=== PATIENT | male | born 1990 | race Caucasian/White ===

== ENCOUNTER 2021-03-10 06:50 | Day surgery (SDC) | payer BC ==
[~2021-03-10 06:50] MED LIST: Lactated Ringers 1,000 ML IV SCH; Lidocaine 1%/Sod Bicarbonate in NS 8.4% 1 ML Syringe IDERM PRN; Sodium Chloride 0.9% 10 ML Syringe FLUSH PRN
[2021-03-10] MEDS ORDERED: Bupivacaine 0.5%/EPINEPHrine 1:200,000 50 ML MDV ONE (07:17)
--- NOTE | 2021-03-10 07:26 | PCM.PREANE ---
Preanesthetic Assessment - Procedure Proposed Procedure: Lipoma excision from the back - Anesthesia/Transfusion/Family Hx Anesthesia History: Prior Anesthesia Without Reaction Transfusion History: No Prior Transfusion(s) - Review of Systems General: No Symptoms, Fatigue Pulmonary: No Symptoms Cardiovascular: No Symptoms Gastrointestinal: No Symptoms Neurological: No Symptoms Other: Reports: Depression, Anxiety - Physical Assessment NPO Status Date: 03/09/21 NPO Status Time: 21:00 Vital Signs: Last Vital Signs Temp 97.5 F 03/10/21 07:00 Pulse 54 L 03/10/21 07:00 Resp 10 L 03/10/21 07:00 BP 120/87 03/10/21 07:00 Pulse Ox 96 03/10/21 07:00 ASA Class: 2 Mental Status: Alert & Oriented x3 Dentition: Reports: Normal Dentition Thyro-Mental Finger Breadths: 3 Mouth Opening Finger Breadths: 2 ROM/Head Extension: Full Lungs: Clear to Auscultation, Normal Respiratory Effort Cardiovascular: Regular Rate, Regular Rhythm - Allergies Allergies/Adverse Reactions: Allergies Allergy/AdvReac Type Severity Reaction Status Date / Time No Known Allergies Allergy Verified 03/09/21 11:55 - Acknowledgements Anesthesia Type Planned: MAC Pt an Appropriate Candidate for the Planned Anesthesia: Yes Alternatives and Risks of Anesthesia Discussed w Pt/Guardian: Yes Pt/Guardian Understands and Agrees with Anesthesia Plan: Yes PreAnesthesia Questionnaire HEENT History: Reports: Impaired Vision Other HEENT History: WEARS GLASSES Cardiovascular History: Reports: None Respiratory History: Reports: None Gastrointestinal History: Reports: None Genitourinary History: Reports: None 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: 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: None Other Musculoskeletal History: RIGHT SHOULDER PAIN, ROTATOR CUFF IMPINGEMENT AC JOINT DEGENERATIVE DISEASE WITH GLENOID LABRAL TEAR Neurological History: Reports: Other (See Below) Other Neuro History: concussion Psychiatric History: Reports: Anxiety, Depression, Other (See Below) Other Psychiatric History: fatigue, sleep disturbances Endocrine/Metabolic History: Reports: None Hematologic History: Reports: None Immunologic History: Reports: None Oncologic (Cancer) History: Reports: None Dermatologic History: Reports: Other (See Below) Other Dermatologic History: back lipoma - Infectious Disease History Infectious Disease History: Reports: None - Past Surgical History Head Surgeries/Procedures: Reports: None HEENT Surgical History: Reports: LASIK Cardiovascular Surgical History: Reports: None Respiratory Surgical History: Reports: None GI Surgical History: Reports: None Female Surgical History: Reports: None Male Surgical History: Reports: None Endocrine Surgical History: Reports: None Neurological Surgical History: Reports: None Musculoskeletal Surgical History: Reports: Shoulder Surgery Oncologic Surgical History: Reports: None Dermatological Surgical History: Reports: None - SUBSTANCE USE Tobacco Use Status *Q: Never Tobacco User Recreational Drug Use History: No - HOME MEDS Home Medications: Home Meds Escitalopram [Lexapro] 40 mg PO QAM 03/09/21 [History] Ibuprofen 600 mg PO Q4H PRN 03/09/21 [History] - CURRENT (IN HOUSE) MEDS Current Meds: Current Medications Lactated Ringer's (Ringers, Lactated) 1,000 mls @ 125 mls/hr IV ASDIRECTED LUANN Stop: 03/10/21 23:00 Lidocaine/Sodium Bicarbonate (Lidocaine 1%/Sod Bicarbonate In Ns 8.4% 1 Ml Syringe) 0.25 ml IDERM ONETIME PRN PRN Reason: Prior to IV Start Stop: 03/10/21 18:00 Sodium Chloride (Sodium Chloride 0.9% 10 Ml Syringe) 10 ml FLUSH ASDIRECTED PRN PRN Reason: Keep Vein Open Stop: 03/10/21 18:00
[2021-03-10] MEDS ORDERED: Lidocaine 1% 6 ML ONE (07:30)
[2021-03-10] MEDS ORDERED: Propofol 200 MG/20 ML SDV ONE ×6 (07:30→08:59)
[2021-03-10] MEDS ORDERED: Midazolam 1 MG/ML 2 ML SDV ONE (07:31)
[2021-03-10] MEDS ORDERED: fentaNYL 100 MCG/2 ML SDV ONE ×2 (07:31→08:27)
[2021-03-10] MEDS ORDERED: Ondansetron 4 MG/2 ML SDV ONE (08:35)
[2021-03-10] MEDS ORDERED: Lactated Ringers 1,000 ML ONE (08:38)
[2021-03-10] MEDS ORDERED: Ketamine 500 mg/10 ML MDV ONE (08:51)
[2021-03-10] MEDS ORDERED: Sodium Chloride 0.9% 10 ML Syringe FLUSH ONE (10:45)
[2021-03-10] MEDS ORDERED: Iopamidol 612 MG/ML 100 ML Bottle IVPUSH ONE (10:45)
--- NOTE | 2021-03-10 10:53 | PCM48HPAN ---
Post Anesthesia Note - EVALUATION WITHIN 48HRS OF ANESTHETIC Vital Signs in Normal Range: Yes Patient Participated in Evaluation: Yes Respiratory Function Stable: Yes Airway Patent: Yes Cardiovascular Function Stable: Yes Hydration Status Stable: Yes Pain Control Satisfactory: Yes Nausea and Vomiting Control Satisfactory: Yes Mental Status Recovered: Yes Vital Signs: Last Vital Signs Temp 97.5 F 03/10/21 10:15 Pulse 64 03/10/21 10:15 Resp 10 L 03/10/21 10:15 BP 112/67 03/10/21 10:15 Pulse Ox 92 L 03/10/21 10:15 - COMMENTS/OBSERVATIONS Free Text/Narrative:: Preparing for discharge home
--- NOTE | 2021-03-10 12:07 | CT ---
Chest CT Technique: Multiple axial sections through the chest were obtained. Intravenous contrast was utilized. Reconstructed coronal and sagittal images were obtained. Comparison: No prior chest CT is available. Findings: Visualized upper abdominal structures show fatty infiltration within the liver. No acute abnormality is otherwise seen within the abdomen. No pericardial thickening is seen. Thoracic aorta shows no aneurysm. No mediastinal adenopathy is seen. There is a slight thick linear density along the right side of the mediastinum most likely representing chronic atelectasis. Lungs otherwise are clear with no acute parenchymal change being seen. There is a fatty mass being seen within the posterior right back in between the superficial muscles and chest. This fatty area measures 11.3 cm x 2.5 cm. Craniocaudal length is 10.8 cm. There is superficial soft tissue air being seen, please correlate as to etiology. Bone window settings were obtained which show several slight compression deformities which are likely old. Minimal degenerative change is noted within the upper compression deformity. Impression: 1. Fatty mass compatible with lipoma within the right-sided posterior chest wall. 2. Soft tissue air seen superficial to this area, please correlate as to etiology. 3. Fatty infiltration within the liver. 4. Thick linear density adjacent to the right mediastinum most likely representing chronic atelectasis. Diagnostic code #3
--- NOTE | 2021-03-10 12:26 | PCM.PRNOTE ---
- Free Text/Narrative Note: Date: 03/10/2021 Operation: attempted resection of presumed large lipoma, core biopsies of submuscular mass Surgeon: Yahir Cox MD Indication: large symptomatic soft tissue mass overlying right scapula, present for years, clinically consistent with large lipoma. Findings: large well-circumscribed soft mass, discovered to be deep to the latissimus muscle. At that point, plan for excision was aborted and several core biopsies were obtained. A CT scan was subsequently obtained with findings showing a large submuscular mass consistent with lipoma. Detailed Report: The patient was taken to the operating room and kept in left lateral decubitus position on the stretcher. The right shoulder was prepped and draped in usual sterile fashion. Timeout was performed and monitored anesthesia care was initiated. 20 cc of 0.5% Marcaine with epinephrine was injected intradermally over the lesion. A transversely oriented incision overlying the long access of the mass was made with a 15 blade scalpel. Dissection was carried down to the subcutaneous tissue. Skin flaps were developed. Circumferential dissection was performed. The mass was quite large. As dissection continued, it was apparent that there was skeletal muscle overlying the mass. The mass felt soft and mobile, but due to its size and deep location, I became concerned about the possibility for soft tissue malignancy. I made the decision to abort excision of the mass and obtain multiple core biopsies of the lesion. Specimens were se nt in formalin for pathologic analysis. The skin was closed in layers using interrupted 3-0 Vicryl stitches with running subcuticular 4 oh stitch. The wound was dressed with Dermabond and covered with a dry dressing. The patient was then sent to radiology for a CT scan of the chest with contrast. Findings appear consistent with a large lipoma deep to the latissimus muscle. We will await pathology results and determine an operative plan based on these findings.
[2021-03-10 12:49] VITALS: BP 116/52; PULSE 81
== END 2021-03-10 12:34 | disposition home or self-care (01) ==
LOC: JD.SDS 06:50
PROVIDERS: ATTEND Surgery
DX: D17.21 Benign lipomatous neoplasm of skin and subcutaneous tissue of right arm (principal); E66.3 Overweight; F17.210 Nicotine dependence, cigarettes, uncomplicated; Z79.899 Other long term (current) drug therapy; Z98.890 Other specified postprocedural states; Z68.32 Body mass index [BMI] 32.0-32.9, adult
CPT/HCPCS: 20205; 71260; J2250; J2405; J2704; J3010; J3490; J7120; Q9967; 00300

== ENCOUNTER 2021-03-22 08:55 | Day surgery (SDC) | payer BC ==
[~2021-03-22 08:55] MED LIST changes: +Ketamine 500 mg/10 ML MDV ONE; +Midazolam 1 MG/ML 2 ML SDV ONE; +Ondansetron 4 MG/2 ML SDV ONE; +Propofol 200 MG/20 ML SDV ONE; +fentaNYL 250 MCG/5 ML SDV ONE
[2021-03-22] MEDS ORDERED: Lidocaine 1% with EPINEPHrine 1:100,000 10 ML MDV ONE ×2 (09:00→09:54)
--- NOTE | 2021-03-22 09:00 | PCM.PREANE ---
Preanesthetic Assessment - Anesthesia/Transfusion/Family Hx Anesthesia History: Prior Anesthesia Without Reaction Family History of Anesthesia Reaction: No Transfusion History: No Prior Transfusion(s) - Review of Systems General: No Symptoms, Fatigue Pulmonary: No Symptoms Cardiovascular: No Symptoms Gastrointestinal: No Symptoms Neurological: No Symptoms Other: Reports: Depression, Anxiety - Physical Assessment NPO Status Date: 03/21/21 NPO Status Time: 20:00 ASA Class: 2 Mental Status: Alert & Oriented x3 Airway Class: Mallampati = 2 Dentition: Reports: Normal Dentition Thyro-Mental Finger Breadths: 3 Mouth Opening Finger Breadths: 3 ROM/Head Extension: Full Lungs: Clear to Auscultation, Normal Respiratory Effort Cardiovascular: Regular Rate, Regular Rhythm - Allergies Allergies/Adverse Reactions: Allergies Allergy/AdvReac Type Severity Reaction Status Date / Time No Known Allergies Allergy Verified 03/22/21 08:34 - Blood Blood Available: No Product(s) Available: None - Anesthesia Plan Pre-Op Medication Ordered: None - Acknowledgements Anesthesia Type Planned: General Anesthesia Pt an Appropriate Candidate for the Planned Anesthesia: Yes Alternatives and Risks of Anesthesia Discussed w Pt/Guardian: Yes Pt/Guardian Understands and Agrees with Anesthesia Plan: Yes PreAnesthesia Questionnaire HEENT History: Reports: Impaired Vision Other HEENT History: WEARS GLASSES Cardiovascular History: Reports: None Respiratory History: Reports: None Gastrointestinal History: Reports: None Genitourinary History: Reports: None 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: 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: 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 Other Musculoskeletal History: RIGHT SHOULDER PAIN, ROTATOR CUFF IMPINGEMENT AC JOINT DEGENERATIVE DISEASE WITH GLENOID LABRAL TEAR Neurological History: Reports: Other (See Below) Other Neuro History: concussion Psychiatric History: Reports: Anxiety, Depression, Other (See Below) Other Psychiatric History: fatigue, sleep disturbances Endocrine/Metabolic History: Reports: None, Obesity/BMI 30+ Hematologic History: Reports: None Immunologic History: Reports: None Oncologic (Cancer) History: Reports: None Dermatologic History: Reports: Other (See Below) Other Dermatologic History: back lipoma - Infectious Disease History Infectious Disease History: Reports: None - Past Surgical History Head Surgeries/Procedures: Reports: None HEENT Surgical History: Reports: LASIK Cardiovascular Surgical History: Reports: None Respiratory Surgical History: Reports: None GI Surgical History: Reports: None Female Surgical History: Reports: None Male Surgical History: Reports: None Endocrine Surgical History: Reports: None Neurological Surgical History: Reports: None Musculoskeletal Surgical History: Reports: Shoulder Surgery Oncologic Surgical History: Reports: None Dermatological Surgical History: - SUBSTANCE USE Tobacco Use Status *Q: Never Tobacco User Recreational Drug Use History: No - HOME MEDS Home Medications: Home Meds Escitalopram [Lexapro] 40 mg PO QAM 03/09/21 [History] Ibuprofen 600 mg PO Q4H PRN 03/09/21 [History] oxyCODONE 5 mg PO Q4H PRN #15 tab 03/10/21 [Rx] - CURRENT (IN HOUSE) MEDS Current Meds: Current Medications Lactated Ringer's (Ringers, Lactated) 1,000 mls @ 125 mls/hr IV ASDIRECTED LUANN Stop: 03/22/21 23:00 Lidocaine/Sodium Bicarbonate (Lidocaine 1%/Sod Bicarbonate In Ns 8.4% 1 Ml Syringe) 0.25 ml IDERM ONETIME PRN PRN Reason: Prior to IV Start Stop: 03/22/21 23:00 Sodium Chloride (Sodium Chloride 0.9% 10 Ml Syringe) 10 ml FLUSH ASDIRECTED PRN PRN Reason: Keep Vein Open Stop: 03/22/21 23:00 Discontinued Medications Fentanyl (Fentanyl 250 Mcg/5 Ml Sdv) Confirm Administered Dose 250 mcg .ROUTE .STK-MED ONE Stop: 03/22/21 08:12 Ketamine HCl (Ketamine 500 Mg/10 Ml Mdv) Confirm Administered Dose 500 mg .ROUTE .STK-MED ONE Stop: 03/22/21 08:36 Midazolam HCl (Midazolam 1 Mg/Ml 2 Ml Sdv) Confirm Administered Dose 2 mg .ROUTE .STK-MED ONE Stop: 03/22/21 08:12 Ondansetron HCl (Ondansetron 4 Mg/2 Ml Sdv) Confirm Administered Dose 4 mg .ROUTE .STK-MED ONE Stop: 03/22/21 08:25 Propofol (Propofol 200 Mg/20 Ml Sdv) Confirm Administered Dose 200 mg .ROUTE .STK-MED ONE Stop: 03/22/21 08:25 Sodium Chloride (Sodium Chloride 0.9% 10 Ml Syringe) 10 ml FLUSH ASDIRECTED PRN PRN Reason: Keep Vein Open
[2021-03-22] MEDS ORDERED: Bupivacaine 0.5%/EPINEPHrine 1:200,000 50 ML MDV ONE (09:01)
[2021-03-22] MEDS ORDERED: Ketorolac 30 MG/ML SDV ONE (10:20)
[2021-03-22] MEDS ORDERED: HYDROmorphone 0.5 MG/0.5 ML Syringe IVPUSH PRN (10:59)
[2021-03-22] MEDS ORDERED: fentaNYL 100 MCG/2 ML SDV IVPUSH PRN (10:59)
[2021-03-22] MEDS ORDERED: Ondansetron 4 MG/2 ML SDV IVPUSH PRN (10:59)
--- NOTE | 2021-03-22 10:59 | PCM.POSTAN ---
POST ANESTHESIA ASSESSMENT - MENTAL STATUS Mental Status: Alert, Oriented - VITAL SIGNS Vital Signs: Last Vital Signs Temp 36.6 C 03/22/21 09:00 Pulse 50 L 03/22/21 09:00 Resp 17 03/22/21 09:00 BP 132/90 03/22/21 09:00 Pulse Ox 94 L 03/22/21 09:00 - RESPIRATORY Respiratory Status: Respiratory Rate WNL, Airway Patent, O2 Saturation Stable, Supplemental Oxygen - CARDIOVASCULAR CV Status: Pulse Rate WNL, Blood Pressure Stable - GASTROINTESTINAL GI Status: No Symptoms - PAIN Pain Score: 0 - POST OP HYDRATION Hydration Status: Adequate & Stable
--- NOTE | 2021-03-22 11:14 | PCM.PRNOTE ---
- Free Text/Narrative Note: Date: 03/22/2021 Operation: excision of right posterior shoulder lipoma Surgeon: Yahir Cox MD History: initial attempt at excision was aborted due to zie and depth of lesion. CT chest and core biopsies indicate the lesion is a benign large lipoma deep to the latissimus muscle. Antibiotic: not indicated EBL: 30 cc Specimen: lipoma, 10 cm in diameter Findings: well circumscribed lipoma, large, deep to the outer layer of muscle at the posterior right shoulder. Detailed Report: The patient was taken to the OR and had and LMA placed with monitored anesthesia care. Time out was performed. The patient was in left lateral decubitus position. The back was prepped and draped in sterile fashion. A total of 40 cc 0.5% marcaine with epinephrine was used for local anesthetic. The old incision was excised completely in a thin ellipse using the scalpel. The previous plane of dissection around the mass in subcutaneous tissue was redeveloped bluntly. Dissection with a hemostat was carried down directly on the apex of the lesion, and muscle fibers were splayed or divided in order to expose the lipoma. After retraction of the muscle fibers, the lesion had a clearly defined border and was easily mobilized from from surrounding tissue. The lipoma was removed intact and measured about 10 cm in span. There was no significant blood supply identified as feeding the mass. The specimen was placed in formalin and sent for analysis. Hemostasis was satisfactory. The wound was closed in several layers using inter rupted vicryl suture. Skin was closed with running subcuticular vicryl suture and dressed with dermabond. A dry dressing was applied. The patient tolerated the operation well.
--- NOTE | 2021-03-22 11:40 | PCM48HPAN ---
Post Anesthesia Note - EVALUATION WITHIN 48HRS OF ANESTHETIC Vital Signs in Normal Range: Yes Patient Participated in Evaluation: Yes Respiratory Function Stable: Yes Airway Patent: Yes Cardiovascular Function Stable: Yes Hydration Status Stable: Yes Pain Control Satisfactory: Yes Nausea and Vomiting Control Satisfactory: Yes Mental Status Recovered: Yes Vital Signs: Last Vital Signs Temp 36.7 C 03/22/21 11:06 Pulse 107 H 03/22/21 11:06 Resp 18 03/22/21 11:30 BP 152/90 H 03/22/21 11:30 Pulse Ox 98 03/22/21 11:30
[2021-03-22 12:23] VITALS: PULSE 91
[2021-03-22 12:34] VITALS: BP 137/91
== END 2021-03-22 13:01 | disposition home or self-care (01) ==
LOC: JD.SDS 08:55
PROVIDERS: ATTEND Surgery
DX: D17.1 Benign lipomatous neoplasm of skin and subcutaneous tissue of trunk (principal); L90.5 Scar conditions and fibrosis of skin; G47.9 Sleep disorder, unspecified; F17.210 Nicotine dependence, cigarettes, uncomplicated; E66.3 Overweight; Z68.32 Body mass index [BMI] 32.0-32.9, adult
CPT/HCPCS: 00300; J1885; J2250; J2405; J2704; J3010; J3490; J7120